=== PATIENT | male | born 1955 | race Caucasian/White ===

== ENCOUNTER 2020-04-20 12:23 | Inpatient (IN) | payer MEDICARE ==
[~2020-04-20] VITALS: Ht 177.8 cm; Wt 89.8 kg
[2020-04-20 14:00] VITALS: BP 149/87
[2020-04-20] MEDS ORDERED: ONDANSETRON 4 MG TAB PO PRN (14:15)
[2020-04-20] MEDS ORDERED: ACETAMINOPHEN 325 MG TAB PO PRN (14:15)
[2020-04-20] MEDS ORDERED: AMLO1TAB24 PO (14:19)
[2020-04-20] MEDS ORDERED: PLAV1TAB2 PO (14:19)
[2020-04-20] MEDS ORDERED: LOVE1INJ SC (14:19)
[2020-04-20] MEDS ORDERED: ASPI81TA26 PO (14:19)
[2020-04-20] MEDS ORDERED: FLUO20CA22 PO (14:19)
[2020-04-20] MEDS ORDERED: CARV3.12 PO (14:19)
[2020-04-20] MEDS ORDERED: DOCU100C16 PO (14:19)
[2020-04-20] MEDS ORDERED: HYDR25TAB PO (14:19)
[2020-04-20] MEDS ORDERED: LOSA100T50 PO (14:19)
[2020-04-20] MEDS ORDERED: MILKSUS3 PO (14:19)
[2020-04-20] MEDS ORDERED: ATOR80TA59 PO (14:19)
[2020-04-20] MEDS ORDERED: LISI-542 PO (14:53)
[2020-04-20] MEDS: FLUoxetine 20 MG CAP PO SCH (17:26)
--- NOTE | 2020-04-20 17:30 | HPEPDOC ---
Induction Coordination Power Engineer Note DATE OF ADMISSION: April 20, 2020 DATE OF SERVICE: April 20, 2020 TIME OF ADMISSION: Please refer to physician's admission order. SOURCE OF ADMISSION INFORMATION: Medical Records and Patient ADMITTING DIAGNOSES: Left CVA Multi infarct bilaterally. Right hemiparesis. Dysarthria Aphasia Hypertension. Atherosclerosis Carotid stenosis Possible chronic Right maxillary Sinusitis Ataxia CHIEF COMPLAINT: Right hemiparesis. Communication deficits Possible Swallowing issues HISTORY OF PRESENT ILLNESS: This is a 64-year-old right handed male with no medical evaluation for over a decade who presented to [facility] with 12+ hours of worsening right-sided weakness, dysarthria, ataxia on April 15 with [address] transfer to [facility], not considered a candidate for TPA. A pparently the evening of April 14, he had mild right sided weakness, he went to sleep and awoke the morning of the with slurred speech significant right hemiplegia and incoordination. Workup remarkable for hypertension 170/94 treated initially with nicardipine drip, then converted to PO meds. Workup noted widespread atheromatous disease throughout cerebral vasculature with evidence bilateral multiple lacunar infarcts and opacification right maxillary sinus, possible chronic sinusitis/fungal sinusitis that may need further future assessment. He presents for comprehensive rehabilitation with the encouragement and support of his who is also his primary caregiver. REVIEW OF SYSTEMS: The following is a completed review of systems and has been reviewed. Review of systems otherwise unremarkable. PAIN: Patient self reports no pain. EYES: No recent vision changes. EARS, NOSE, & THROAT: No throat pain, or dysphagia, or rhinorrhea. CARDIOVASCULAR: Denies chest pain or palpitations. PULMONARY: Denies shortness of breath. GASTROINTESTINAL: Denies constipation/diarrhea. GENITOURINARY:negative. MUSCULOSKELETAL: Negative . NEUROLOGICAL:. Right sided weakness HEMATOLOGICAL: negative SKIN: Negative for bleeding bruising or other challenges PSYCHIATRIC: Negative for behavioral problems or agitation All other review of systems found to be negative. PAST MEDICAL HISTORY: Unknown, no recent care PAST SURGICAL HISTORY: Knee surgery HS ALLERGIES: Please see below. MEDICATIONS: Please see below. FAMILY HISTORY: parents 90s no chronic illness SOCIAL HISTORY: . Non Smoker, no EtOH, lives in a 4 step entrance home. DIET: Pureed PHYSICAL EXAMINATION: VITAL SIGNS: Please see below. GENERAL: Pleasant and cooperative well developed muscular gentleman with flowing hernandez, difficult to assess for facial droop, however decreased eye closure on right. No acute distress. Alert and oriented times three speaks with slurred but comprehensible and appropriate speech. HEENT: Extraocular movements decreased on right lateral gaze. Clear conjunctiva, no adenopathy or thyromegaly. Full cervical range of motion without tenderness or spasm. CARDIOVASCULAR: Regular rate and rhythm. No murmurs, rubs, or gallops. LUNGS: Clear to auscultation bilaterally. No wheezes. No rhonchi. ABDOMEN: Soft, nontender, nondistended. Positive bowel sounds. Normal active bowel sounds, no organomegaly. NEUROLOGICAL: Cranial nerves II through XII noted for decreased hearing bila terally, decreased EOM on right, decreased lid closure, tongue deviated slightly to right. Sensation grossly intact all 4 extremities.. 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 Right LE increased tone on passive range, difficult to assess functional movement, left lower extremity 5/5 knee extension, foot dorsiflexion, plantar flexion. SKIN: intact LABORATORY DATA: Please see below. IMAGING:Imaging documentation personally reviewed by record. CT Angio 04.16.2020 Lacunar infarcts, left yarbrough radiate, posterior limb left internal capsule as well as lacunar infarcts, right yarbrough radiate Admit stenosis, left P1 moderate stenosis right P2 segments, luminal irregularities bilateral MCA and METALSMITH secondary to atheromatous disease. Incidental note also minimum near complete opacification of right maxillary sinus, possibly chronic sinusitis for fungal sinusitis MRI Brain w/o contrast 04.16.2020 Acute infarct L yarbrough radiate and posterior limb left internal capsule Chronic small vessel ischemic disease FUNCTIONAL STATUS: Premorbid: Independent with all activities of daily life as well as mobility. On Admission: -Maximal assistance for lower body dressing, shower transfers, stairs. - Maximal to moderate assistance for bathing, upper body dressing, bed chair and wheelchair transfers, toilet transfers. - Moderate assistance for memory, communication and problem solving. -Modified independence for social interaction, expression, comprehension, bowel and bladder. GOALS: Regain maximal functional capabilities to return home to and family. ASSESSMENT This is a 64-year-old male with no medical evaluation for over a decade who presented to [facility] with worsening right-sided weakness, dysarthria, ataxia on April 15 with subsequent transfer to [facility], not considered a candidate for TPA. Apparently the evening of April 14 he had mild right sided weakness, he went to sleep and awoke the morning of the with slurred speech significant right hemiplegia and incoordination. Workup remarkable for hypertension 170/94 treated initially with nicardipine drip, then converted to PO meds. Workup noted widespread atheromatous disease throughout cerebral vasculature with evidence bilateral multiple lacunar infarcts and opacification right maxillary sinus, possible chronic sinusitis/fungal sinusitis that may need further future assessment. He presents for comprehensive rehabilitation with the encouragement and support of his who is also his primary caregiver. PLAN: 1. Rehab- PT/OT advance gait and ADls, strengthen/stretch/maintain ROM all 4 limbs. 2. 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 Prevent complications of flaccid RUE with arm trough support, sling, splinting as indicated. 3. CVS-No cardiac symptoms, maintain stable BP, probable downward adjustment in BP polypharmacy of meds as he increases activity levels. --HLD- c/u Atorvastatin 5. - Initiate usual bladder training protocols POST ADMISSION PHYSICIAN EVALUATION: Medical and functional status: Description of medical status, medical assessment: As above. Rehabilitation diagnosis and current and prior co- morbid medical conditions as above. Risk of complications and plans to mitigate them as above. Description of functional status current status is as above. Prior status as above. Status compared to preadmission: There are no clinically significant differences between the patient's current status and the information described on the preadmission screening document. Treatment plan anticipated: Treatment plan is as described above. Required disciplines including physical therapy, occupational therapy, others as noted above]. Intensity of services: 3 hours a day, 6-7 days a week. Special considerations: There are no specific special or safety considerations that would likely preclude immediate implementation of an intensive rehabilitati on program or subsequently influence the plan of care. ATTESTATION: Considering all the information above, it is my best judgment that this patient requires intensive rehabilitation therapy as described above and an inpatient hospital environment due to the complexity of nursing, medical, and rehabilitation needs required by the patient. Furthermore, this patient can reasonably be expected to participate in an benefit from an inpatient rehabilitation stay with an interdisciplinary team approach to the delivery of rehabilitation care under the direction and supervision of rehabilitation physician. PROGNOSIS: Excellent. ESTIMATED LENGTH OF STAY:7-10 days. PROJECTED DISCHARGE DESTINATION: Home with family support and any durable medical equipment required to increase functional safety and mobility. CM at [facility] coordinated anticipated FU with new PMD Dr. Kristine Beth in [place] TIME SPENT COUNSELING AND COORDINATING INITIAL CARE: Greater than 70 minutes. This document is generated using speech recognition software which may result in grammatical, typographical and individual word errors. Vital Signs Vital Sign - Last 24 Hours 04/20/20 14:00 Temp 98.3 Pulse 80 Resp 18 B/P (MAP) 149/87 (107) Pulse Ox 97 O2 Delivery Room Air Laboratory Data Labs 24H Laboratory Tests 2 04/20/20 16:30: Bedside Glucose (Misc Panel) 172H FSBS Laboratory Tests Test 04/20/20 16:30 Range/Units Bedside Glucose (Misc Panel) 172 80-115 MG/DL Home Medications Scheduled Amlodipine Besylate (Amlodipine Besylate) 5 Mg Tablet, 5 MG PO DAILY, (Reported) Aspirin (Aspirin EC) 81 Mg Tablet.dr, 81 MG PO DAILY, (Reported) Atorvastatin Calcium (Atorvastatin Calcium) 80 Mg Tablet, 80 MG PO QHS, (Reported) Carvedilol (Carvedilol) 3.125 Mg Tablet, 3.125 MG PO BID, (Reported) Clopidogrel Bisulfate (Plavix) 75 Mg Tablet, 75 MG PO DAILY, (Reported) Enoxaparin Sodium (Lovenox) 40 Mg/0.4 Ml Syringe, 40 MG SC QHS, (Reported) GIVEN AT [facility] BUT NOT ON HOME MED LIST Fluoxetine Hcl (Fluoxetine HCl) 20 Mg Capsule, 20 MG PO DAILY, (Reported) Hydrochlorothiazide (Hydrochlorothiazide) 25 Mg Tablet, 25 MG PO DAILY, (Reported) Lisinopril (Lisinopril) 5 Mg Tablet, 5 MG PO DAILY, (Reported) PT TO START MEDICATION ON 04/21 Losartan Potassium (Losartan Potassium) 100 Mg Tablet, 100 MG PO BID, (Reported) Magnesium Hydroxide (Milk of Magnesia) 400 Mg/5 Ml Oral.susp, 45 ML PO QHS, (Reported) Scheduled PRN Docusate Sodium (Docusate Sodium) 100 Mg Capsule, 100 MG PO BID PRN for CONSTIPATION, (Reported) Allergies Coded Allergies: No Known Allergies (Verified Allergy, Unknown, 04/20/20) A-FIB/CHADSVASC A-FIB History Current/History of A-Fib/PAF?: No Age/Risk Factor Scoring CHADSVASC: CHADSVASC Response (Comments) Value Age Risk Factor Age 65-74 years old 1 Gender Risk Factor Male 0 Hx of CHF No 0 Hx of HTN Yes 1 Hx of Stroke/TIA/or VTE Yes 2 Hx of Diabetes No 0 Hx of Vascular Disease No 0 Total 4 Treatment Treatment ordered: Other Other anticoagulant ordered: Clopidegrel SILVESTRE COELHO MD Apr 20, 2020 17:30
[2020-04-20 20:00] VITALS: BP 138/77
[2020-04-20] MEDS ORDERED: GLUCAGON INJ 1MG VIAL SC PRN (20:45)
[2020-04-20] MEDS ORDERED: GLUCOSE 4GM CHEW TABLET PO PRN (20:45)
[2020-04-20] MEDS ORDERED: DEXTROSE 50% 50 ML SYRINGE IV PRN (20:45)
[2020-04-20] MEDS: HumaLOG INSULIN (NovoLOG) PER UNIT SC SCH (21:00)
[2020-04-20] MEDS: ATORVASTATIN 20 MG TAB PO SCH (21:06)
[2020-04-20] MEDS: CARVedilol 3.125 MG TAB PO SCH (21:07)
[2020-04-20] MEDS: LOSARTAN 50MG TABLET PO SCH (21:07)
[2020-04-21 04:25] LABS: APPEARANCE, URINE HAZY (CLEAR); BACTERIA, URINE AUTO 3+ (NEGATIVE); BILIRUBIN, URINE AUTO NEGATIVE (NEGATIVE); BLOOD, URINE BLOOD NEGATIVE (NEGATIVE); COLOR, URINE YELLOW (YELLOW); GLUCOSE, URINE (UA) AUTO NEGATIVE (NEGATIVE); KETONE, URINE AUTO NEGATIVE (NEGATIVE); LEUKOCYTE ESTERASE, URINE AUTO 1+ (NEGATIVE); MUCUS, URINE SMALL (NEGATIVE); NITRITE, URINE AUTO POSITIVE (NEGATIVE); PROTEIN, URINE AUTO 1+ mg/dL (NEGATIVE); RBC, URINE AUTO 1 /HPF (0-3); SPECIFIC GRAVITY URINE AUTO 1.015 (1.002-1.035); SQUAMOUS EPITHELIAL CELL UR AU 2 /HPF (0-6); UROBILINOGEN, URINE AUTO 0.2 mg/dL (0.0-2.0); WBC, URINE AUTO 37 /HPF (0-3)
[2020-04-21 05:58] VITALS: BP 150/82
[2020-04-21] MEDS: ASPIRIN 81 MG ENTERIC TAB PO SCH (08:19)
[2020-04-21] MEDS: LOSARTAN 50MG TABLET PO SCH ×2 (08:19→20:22)
[2020-04-21] MEDS: hydroCHLOROthiazide 25 MG TAB PO SCH (08:20)
[2020-04-21] MEDS: amLODIPine 5 MG TAB PO SCH (08:20)
[2020-04-21] MEDS: CLOPIDOGREL 75 MG TAB PO SCH (08:20)
[2020-04-21] MEDS: lisinopriL 5 MG TAB PO SCH (08:21)
[2020-04-21] MEDS: DOCUSATE SODIUM 100MG CAPSULE PO SCH (08:22)
[2020-04-21] MEDS: CARVedilol 3.125 MG TAB PO SCH ×2 (08:22→20:22)
[2020-04-21] MEDS: HumaLOG INSULIN (NovoLOG) PER UNIT SC SCH ×4 (08:22→20:22)
[2020-04-21 08:36] LABS: BASO # 0.1 10^3/uL (0.0-0.2); BASO % 0.6 % (0.0-1.0); EOS # 0.2 10^3/uL (0.0-0.5); EOS % 1.9 % (0.0-3.0); HEMATOCRIT 46.4 % (42.0-52.0); HEMOGLOBIN 15.6 g/dl (13.5-17.5); LYMPH # 2.5 10^3/uL (1.5-5.0); LYMPH % 21.2 % (24.0-44.0); MEAN CORPUSCULAR HEMOGLOBIN 29.7 pg (27.0-33.0); MEAN CORPUSCULAR HGB CONC 33.6 g/dl (32.0-36.5); MEAN CORPUSCULAR VOLUME 88.4 fl (80.0-96.0); MONO # 1.3 10^3/uL (0.0-0.8); MONO % 11.1 % (0.0-5.0); NEUTROPHILS # 7.7 10^3/uL (1.5-8.5); NEUTROPHILS % 64.8 % (36.0-66.0); PLATELET COUNT, AUTOMATED 353 10^3/uL (150-450); RED BLOOD COUNT 5.25 10^6/uL (4.30-6.10); WHITE BLOOD COUNT 11.8 10^3/uL (4.0-10.0)
[2020-04-21 09:01] LABS: ALBUMIN 3.5 GM/DL (3.2-5.2); BILIRUBIN,TOTAL 0.9 MG/DL (0.2-1.0); CALCIUM LEVEL 8.9 MG/DL (8.8-10.2); CREATININE FOR GFR 1.77 MG/DL (0.70-1.30); GLOMERULAR FILTRATION RATE 41.3 (>49); POTASSIUM SERUM 4.2 MEQ/L (3.5-5.1)
[2020-04-21 14:00] VITALS: BP 120/63
[2020-04-21] MEDS: FLUoxetine 20 MG CAP PO SCH (17:09)
[2020-04-21 20:00] VITALS: BP 165/79
[2020-04-21] MEDS: ATORVASTATIN 20 MG TAB PO SCH (20:21)
[2020-04-22 06:00] VITALS: BP 139/89
[2020-04-22] MEDS: LOSARTAN 50MG TABLET PO SCH ×2 (07:42→20:49)
[2020-04-22] MEDS: CARVedilol 3.125 MG TAB PO SCH ×2 (07:42→20:48)
[2020-04-22] MEDS: hydroCHLOROthiazide 25 MG TAB PO SCH (07:42)
[2020-04-22] MEDS: ASPIRIN 81 MG ENTERIC TAB PO SCH (07:42)
[2020-04-22] MEDS: CLOPIDOGREL 75 MG TAB PO SCH (07:43)
[2020-04-22] MEDS: amLODIPine 5 MG TAB PO SCH (07:43)
[2020-04-22] MEDS: lisinopriL 5 MG TAB PO SCH (07:43)
[2020-04-22] MEDS: HumaLOG INSULIN (NovoLOG) PER UNIT SC SCH ×4 (07:44→20:47)
[2020-04-22] MEDS: DOCUSATE SODIUM 100MG CAPSULE PO SCH (07:44)
[2020-04-22 14:00] VITALS: BP 162/77
[2020-04-22] MEDS: FLUoxetine 20 MG CAP PO SCH (17:26)
[2020-04-22 20:00] VITALS: BP 167/81
[2020-04-22] MEDS: ATORVASTATIN 20 MG TAB PO SCH (20:48)
[2020-04-23 06:00] VITALS: BP 165/83
[2020-04-23] MEDS ORDERED: LevoFLOXacin 750 MG TABLET PO SCH (06:00)
[2020-04-23] MEDS: ASPIRIN 81 MG ENTERIC TAB PO SCH (08:12)
[2020-04-23] MEDS: HumaLOG INSULIN (NovoLOG) PER UNIT SC SCH ×4 (08:12→20:42)
[2020-04-23] MEDS: lisinopriL 5 MG TAB PO SCH (08:13)
[2020-04-23] MEDS: CLOPIDOGREL 75 MG TAB PO SCH (08:13)
[2020-04-23] MEDS: DOCUSATE SODIUM 100MG CAPSULE PO SCH (08:13)
[2020-04-23] MEDS: LOSARTAN 50MG TABLET PO SCH ×2 (08:14→20:44)
[2020-04-23] MEDS: hydroCHLOROthiazide 25 MG TAB PO SCH (08:14)
[2020-04-23] MEDS: amLODIPine 5 MG TAB PO SCH (08:14)
[2020-04-23 08:15] VITALS: BP 145/73
[2020-04-23] MEDS: CARVedilol 3.125 MG TAB PO SCH ×2 (08:15→20:43)
--- NOTE | 2020-04-23 11:43 | IPNPDOC ---
PM&R Progress Note DATE OF SERVICE: Apr 23, 2020 Functional Manager Progress Note Subjective: PAtient reports he feels very weak on his right side, denies pain, fevers or chills, and is agreeable to staying beyond tomorrow to get more therapy. REVIEW OF SYSTEMS: The following is a completed review of systems and has been reviewed. Review of systems otherwise unremarkable. PAIN: Patient self reports no pain. EYES: No recent vision changes. EARS, NOSE, & THROAT: No throat pain,+ dysphagia CARDIOVASCULAR: Denies chest pain or palpitations. PULMONARY: Denies shortness of breath. GASTROINTESTINAL: Denies constipation/diarrhea. GENITOURINARY:negative. MUSCULOSKELETAL: Negative . NEUROLOGICAL:. Right sided weakness HEMATOLOGICAL: negative SKIN: Negative for bleeding bruising or other challenges PSYCHIATRIC: Negative for behavioral problems or agitation All other review of systems found to be negative. PHYSICAL EXAMINATION: VITAL SIGNS: Please see below. GENERAL: Pleasant and cooperative well developed muscular gentleman with flowing hernandez, difficult to assess for facial droop, however decreased eye closure on right. No acute distress. Alert and oriented times three speaks with slurred but comprehensible and appropriate speech. HEENT: Extraocular movements decreased on right lateral gaze. Clear conjunctiva, no adenopathy or thyromegaly. Full cervical range of motion without tenderness or spasm. CARDIOVASCULAR: Regular rate and rhythm. No murmurs, rubs, or gallops. LUNGS: Clear to auscultation bilaterally. No wheezes. No rhonchi. ABDOMEN: Soft, nontender, nondistended. Positive bowel sounds. Normal active bowel sounds, no organomegaly. NEUROLOGICAL: Cranial nerves II through XII noted for decreased hearing bilaterally, decreased EOM on right, decreased lid closure, tongue deviated slightly to right. Sensation grossly intact all 4 extremities.. 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 Right LE increased tone on passive range, difficult to assess functional movement, left lower extremity 5/5 knee extension, foot dorsiflexion, plantar flexion. SKIN: intact ASSESSMENT This is a 64-year-old male with no medical evaluation for over a decade who presented to [facility] with worsening right-sided weakness, dysarthria, ataxia on April 15 with subsequent transfer to [facility], not considered a candidate for TPA. Apparently the evening of April 14 he had mild right sided weakness, he went to sleep and awoke the morning of the with slurred speech significant right hemiplegia and incoordination. Workup remarkable for hypertension 170/94 treated initially with nicardipine drip, then converted to PO meds. Workup noted widespread atheromatous disease throughout cerebral vasculature with evidence bilateral multiple lacunar infarcts and opacification right maxillary sinus, possible chronic sinusitis/fungal sinusitis that may need further future assessment. He presents for comprehensive rehabilitation with the encouragement and support of his who is also his primary caregiver. PLAN: 1. Rehab- PT/OT advance gait and ADls, strengthen/stretch/maintain ROM all 4 limbs. 2. 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 CV- Hx of HTN, c/u BP meds, will track kidney function while on HEATHER and ARB, unclear if he has chronic CKD S-No cardiac symptoms, maintain stable BP, probable downward adjustment in BP polypharmacy of meds as he increases activity levels. --HLD- c/u Atorvastatin 5. - Initiate usual bladder training protocols, Ucx + E. coli will start renally dosed LEvaquin for complicated UTI 6. GI ppx- lanzaprazole 7. DVT ppx- heparin and teds 8. ID- patient started on levaquin for UTI today -patient not complaining of sinus pain today, but will monitor as possible nidus for infection 9. Dispo- TBD Allergies Coded Allergies: No Known Allergies (Verified Allergy, Unknown, 04/20/20) Vital Signs Vital Signs Date Time Temp Pulse Resp B/P (MAP) Pulse Ox O2 Delivery O2 Flow Rate FiO2 04/23/20 08:15 64 145/73 (97) 04/23/20 06:00 97.8 20 98 Room Air Laboratory Data Labs 24H Laboratory Tests 2 04/22/20 16:13: Bedside Glucose (Misc Panel) 254H 04/22/20 20:11: Bedside Glucose (Misc Panel) 125H 04/23/20 06:20: Bedside Glucose (Misc Panel) 128H Microbiology Microbiology 04/21/20 Urine Culture - Final, Complete Escherichia Coli Current Medications Current Medications Current Medications Medications (Trade) Dose Ordered Sig/Anuja Route PRN Reason Start Time Stop Time Status Last Admin Dose Admin Acetaminophen (Tylenol Tab) 325 mg Q6HP PRN PO HEADACHE 04/20/20 14:15 Amlodipine Besylate (Norvasc) 5 mg DAILY PO 04/21/20 09:00 04/23/20 08:14 Aspirin (Ecotrin) 81 mg DAILY PO 04/21/20 09:00 04/23/20 08:12 Atorvastatin Calcium (Lipitor) 40 mg QHS PO 04/20/20 21:00 04/22/20 20:48 Carvedilol (COReg) 3.125 mg BID PO 04/20/20 21:00 04/23/20 08:15 Clopidogrel Bisulfate (PLAVix) 75 mg DAILY PO 04/21/20 09:00 04/23/20 08:13 Dextrose (Dextrose 50%) 25 ml ASDIRECTED PRN IV SEE LABEL COMMENTS 04/20/20 20:45 Docusate Sodium (Colace) 100 mg DAILY PO 04/21/20 09:00 04/23/20 08:13 Fluoxetine HCl (PROzac) 20 mg DAILY@1800 PO 04/20/20 18:00 04/22/20 17:26 Glucagon (Glucagon) 1 mg ASDIRECTED PRN SC SEE LABEL COMMENTS 04/20/20 20:45 Glucose (Glucose) 16 GM ASDIRECTED PRN PO SEE LABEL COMMENTS 04/20/20 20:45 Home Med (Med Rec Complete!) ASDIRECTED XX 04/20/20 14:45 04/20/20 14:43 DC Hydrochlorothiazide (Hydrodiuril) 25 mg DAILY PO 04/21/20 09:00 04/23/20 08:14 Insulin Human Lispro (HumaLOG INSULIN) See Protocol Table AC SC 04/21/20 07:30 04/23/20 08:12 Insulin Human Lispro (HumaLOG INSULIN) See Protocol Table QHS SC 04/20/20 21:00 Lactobacillus Acidophilus (Bacid) 1 ea WM PO 04/23/20 12:30 Levofloxacin (Levaquin) 750 mg Q2D@0600 PO 04/23/20 06:00 04/29/20 06:01 04/23/20 10:24 Lisinopril (Prinivil) 5 mg DAILY PO 04/21/20 09:00 04/23/20 08:13 Losartan Potassium (Cozaar) 100 mg BID PO 04/20/20 21:00 04/23/20 08:14 Ondansetron HCl (Zofran) 4 mg Q6HP PRN PO NAUSEA OR VOMITING 04/20/20 14:15 ONUR COVARRUBIAS MD Apr 23, 2020 11:43
[2020-04-23] MEDS: LACTOBACILLUS ACIDOPHILUS CAP (BACID) PO SCH ×2 (12:13→18:19)
[2020-04-23] MEDS: HEPARIN SOD (PORCINE) 5000UNITS/ML 1ML VIAL/SYRINGE SQ SCH ×2 (12:14→20:42)
[2020-04-23 12:35] LABS: BASO # 0.1 10^3/uL (0.0-0.2); BASO % 0.5 % (0.0-1.0); EOS # 0.2 10^3/uL (0.0-0.5); EOS % 1.8 % (0.0-3.0); HEMATOCRIT 44.9 % (42.0-52.0); LYMPH # 2.5 10^3/uL (1.5-5.0); LYMPH % 20.7 % (24.0-44.0); MEAN CORPUSCULAR HEMOGLOBIN 29.2 pg (27.0-33.0); MEAN CORPUSCULAR HGB CONC 33.4 g/dl (32.0-36.5); MEAN CORPUSCULAR VOLUME 87.5 fl (80.0-96.0); MONO # 1.1 10^3/uL (0.0-0.8); MONO % 9.2 % (0.0-5.0); NEUTROPHILS % 67.4 % (36.0-66.0); PLATELET COUNT, AUTOMATED 422 10^3/uL (150-450); RED BLOOD COUNT 5.13 10^6/uL (4.30-6.10); WHITE BLOOD COUNT 11.9 10^3/uL (4.0-10.0)
[2020-04-23 13:02] LABS: CALCIUM LEVEL 9.2 MG/DL (8.8-10.2); CREATININE FOR GFR 1.45 MG/DL (0.70-1.30); POTASSIUM SERUM 4.6 MEQ/L (3.5-5.1)
[2020-04-23 14:00] VITALS: BP 151/72
--- NOTE | 2020-04-23 15:23 | REP ---
INDICATION: immobility COMPARISON: None. TECHNIQUE: Real time compression and duplex Doppler interrogation of the bilateral lower extremity deep venous system is performed. FINDINGS: Bilaterally, the common femoral, superficial femoral and popliteal veins are fully compressible with transducer pressure and demonstrate normal spontaneous and phasic flow, without evidence of deep venous thrombosis. IMPRESSION: No evidence of deep venous thrombosis of the bilateral lower extremity femoral popliteal venous system. <Electronically signed by Daniel Merida > 04/23/20 [id number]
[2020-04-23] MEDS: LANSOPRAZOLE SUSPENSION 30 MG/10 ML ORAL SYRINGE (FIRST-LANSOPRAZOLE) PO SCH (18:19)
[2020-04-23] MEDS: FLUoxetine 20 MG CAP PO SCH (18:20)
[2020-04-23 20:00] VITALS: BP 165/80
[2020-04-23] MEDS: ATORVASTATIN 20 MG TAB PO SCH (20:43)
[2020-04-24 06:00] VITALS: BP 145/71
[2020-04-24 08:09] LABS: BASO # 0.1 10^3/uL (0.0-0.2); BASO % 0.5 % (0.0-1.0); EOS # 0.2 10^3/uL (0.0-0.5); EOS % 1.4 % (0.0-3.0); HEMOGLOBIN 15.4 g/dl (13.5-17.5); LYMPH # 2.2 10^3/uL (1.5-5.0); LYMPH % 20.2 % (24.0-44.0); MEAN CORPUSCULAR HEMOGLOBIN 30.3 pg (27.0-33.0); MEAN CORPUSCULAR HGB CONC 34.2 g/dl (32.0-36.5); MEAN CORPUSCULAR VOLUME 88.6 fl (80.0-96.0); MONO # 0.9 10^3/uL (0.0-0.8); MONO % 8.2 % (0.0-5.0); NEUTROPHILS # 7.6 10^3/uL (1.5-8.5); NEUTROPHILS % 69.4 % (36.0-66.0); PLATELET COUNT, AUTOMATED 375 10^3/uL (150-450); RED BLOOD COUNT 5.08 10^6/uL (4.30-6.10); WHITE BLOOD COUNT 10.9 10^3/uL (4.0-10.0)
[2020-04-24] MEDS: HumaLOG INSULIN (NovoLOG) PER UNIT SC SCH ×2 (08:15→12:00)
[2020-04-24] MEDS: hydroCHLOROthiazide 25 MG TAB PO SCH (08:15)
[2020-04-24] MEDS: LACTOBACILLUS ACIDOPHILUS CAP (BACID) PO SCH ×2 (08:15→12:30)
[2020-04-24] MEDS: LOSARTAN 50MG TABLET PO SCH (08:16)
[2020-04-24] MEDS: lisinopriL 5 MG TAB PO SCH (08:17)
[2020-04-24] MEDS: HEPARIN SOD (PORCINE) 5000UNITS/ML 1ML VIAL/SYRINGE SQ SCH (08:17)
[2020-04-24] MEDS: DOCUSATE SODIUM 100MG CAPSULE PO SCH (08:17)
[2020-04-24] MEDS: ASPIRIN 81 MG ENTERIC TAB PO SCH (08:17)
[2020-04-24] MEDS: LANSOPRAZOLE SUSPENSION 30 MG/10 ML ORAL SYRINGE (FIRST-LANSOPRAZOLE) PO SCH (08:18)
[2020-04-24] MEDS: CARVedilol 3.125 MG TAB PO SCH (08:18)
[2020-04-24] MEDS: CLOPIDOGREL 75 MG TAB PO SCH (08:18)
[2020-04-24] MEDS: amLODIPine 5 MG TAB PO SCH (08:18)
[2020-04-24 08:32] LABS: CALCIUM LEVEL 9.3 MG/DL (8.8-10.2); CREATININE FOR GFR 1.48 MG/DL (0.70-1.30); GLOMERULAR FILTRATION RATE 50.8 (>49); POTASSIUM SERUM 4.5 MEQ/L (3.5-5.1)
[2020-04-24] MEDS ORDERED: NS 1,000 ML IV SCH (10:00)
[2020-04-24] MEDS ORDERED: CARV3.12 PO (10:56)
[2020-04-24] MEDS ORDERED: FLUO20CA22 PO (10:56)
[2020-04-24] MEDS ORDERED: INSUHUMDS SC (10:56)
[2020-04-24] MEDS ORDERED: LANC1COM MC (10:56)
[2020-04-24] MEDS ORDERED: LISI-542 PO (10:56)
[2020-04-24] MEDS ORDERED: HYDR25TA PO (10:56)
[2020-04-24] MEDS ORDERED: CLOP75TA2 PO (10:56)
[2020-04-24] MEDS ORDERED: ATOR80TA59 PO (10:56)
[2020-04-24] MEDS ORDERED: FREEMIS42 TOP (10:56)
[2020-04-24] MEDS ORDERED: RISATAB3 PO (10:56)
[2020-04-24] MEDS ORDERED: CARE1KIT XX (10:56)
[2020-04-24] MEDS ORDERED: AMLO1TAB24 PO (10:56)
[2020-04-24] MEDS ORDERED: LEVO750T13 PO (10:56)
[2020-04-24] MEDS ORDERED: HYDR25TAB PO (10:56)
[2020-04-24] MEDS ORDERED: ASPI81TAEC PO (10:56)
--- NOTE | 2020-04-24 11:41 | IPNPDOC ---
PM&R Progress Note DATE OF SERVICE: Apr 24, 2020 Community Liaison Officer Progress Note Subjective: PAtient would like to leave AMA today. He is agreeable to receiving some IV fluids in the meantime. Please see note below. REVIEW OF SYSTEMS: The following is a completed review of systems and has been reviewed. Review of systems otherwise unremarkable. PAIN: Patient self reports no pain. EYES: No recent vision changes. EARS, NOSE, & THROAT: No throat pain,+ dysphagia CARDIOVASCULAR: Denies chest pain or palpitations. PULMONARY: Denies shortness of breath. GASTROINTESTINAL: Denies constipation/diarrhea. GENITOURINARY:negative. MUSCULOSKELETAL: Negative . NEUROLOGICAL:. Right sided weakness HEMATOLOGICAL: negative SKIN: Negative for bleeding bruising or other challenges PSYCHIATRIC: Negative for behavioral problems or agitation All other review of systems found to be negative. PHYSICAL EXAMINATION: VITAL SIGNS: Please see below. GENERAL: Pleasant and cooperative well developed muscular gentleman with flowing hernandez, difficult to assess for facial droop, however decreased eye closure on right. No acute distress. Alert and oriented times three speaks with slurred but comprehensible and appropriate speech. HEENT: Extraocular movements decreased on right lateral gaze. Clear conjunctiva, no adenopathy or thyromegaly. Full cervical range of motion without tenderness or spasm. CARDIOVASCULAR: Regular rate and rhythm. No murmurs, rubs, or gallops. LUNGS: Clear to auscultation bilaterally. No wheezes. No rhonchi. ABDOMEN: Soft, nontender, nondistended. Positive bowel sounds. Normal active bowel sounds, no organomegaly. NEUROLOGICAL: Cranial nerves II through XII noted for decreased hearing bilaterally, decreased EOM on right, decreased lid closure, tongue deviated slightly to right. Sensation grossly intact all 4 extremities.. 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 Right LE increased tone on passive range, difficult to assess functional movement, left lower extremity 5/5 knee extension, foot dorsiflexion, plantar flexion. SKIN: intact ASSESSMENT This is a 64-year-old male with no medical evaluation for over a decade who pr esented to [facility] with worsening right-sided weakness, dysarthria, ataxia on April 15 with subsequent transfer to [facility], not considered a candidate for TPA. Apparently the evening of April 14 he had mild right sided weakness, he went to sleep and awoke the morning of the with slurred speech significant right hemiplegia and incoordination. Workup remarkable for hypertension 170/94 treated initially with nicardipine drip, then converted to PO meds. Workup noted widespread atheromatous disease throughout cerebral vasculature with evidence bilateral multiple lacunar infarcts and opacification right maxillary sinus, possible chronic sinusitis/fungal sinusitis that may need further future assessment. He presents for comprehensive rehabilitation with the encouragement and support of his who is also his primary caregiver. PLAN: 1. Rehab- PT/OT advance gait and ADls, strengthen/stretch/maintain ROM all 4 limbs. 2. 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 CV- Hx of HTN, will stop Cozaar today as patient with PADMINI and a Baggagemaster of 1.7 up from , increase amlodipine to 5mg BID, and add hydralazine with holding parameters, c/u other BP meds for now and adjust as needed-patient to receive gentle IVF today --HLD- c/u Atorvastatin 5. - Initiate usual bladder training protocols, Ucx + E. coli c/u renally dosed LEvaquin for complicated UTI 6. GI ppx- lanzaprazole 7. DVT ppx- heparin and teds-doppler negative 04-23-20 for DVT 8. ID- patient started on levaquin for UTI 04-23-20 -patient not complaining of sinus pain today, but will monitor as possible nidus for infection 9. Dispo- patient leaving AMA today with and daughter- script for wheelchair provided, appointment moved up with PMD for tomorrow given medical complexity and high risk discharge, family training provided today DME patient will need a wheelchair to complete his MRADLs in a timely and safe manner. He is unable to use a walker or cane. His home is accessible, he and his family are willing to use it. Patient on 04-23-20 agreed to stay for more therapy and medical management when I spoke with him. I spoke to his on 04-23-20 about the benefits of rehab and she said she did not want him to stay beyond 04-24-20 stating she feels she can take better care of him and that she is concerned about him getting Covid. Today, 04-24-20 I spoke with his about my concerns with his kidney function and the need to stop his Losartan, adjust his other BP meds, and give gentle hydration. The stated she would give him water and check his blood pressure at home. The risks of kidney damage, uncontrolled blood pressure, high risk of new stroke, and were explained to patient and also his on 04-24-20, but patient states he is aware and still wants to go home. Allergies Coded Allergies: No Known Allergies (Verified Allergy, Unknown, 04/20/20) Vital Signs Vital Signs Date Time Temp Pulse Resp B/P (MAP) Pulse Ox O2 Delivery O2 Flow Rate FiO2 04/24/20 08:16 158/70 04/24/20 06:00 98.8 77 18 99 Room Air Laboratory Data CBC/BMP Laboratory Tests 04/23/20 12:22 04/24/20 07:31 Labs 24H Laboratory Tests 2 04/23/20 11:40: Bedside Glucose (Misc Panel) 195H 04/23/20 12:22: Immature Granulocyte % (Auto) 0.4, Neutrophils (%) (Auto) 67.4H, Lymphocytes (%) (Auto) 20.7L, Monocytes (%) (Auto) 9.2H, Eosinophils (%) (Auto) 1.8, Basophils (%) (Auto) 0.5, Neutrophils # (Auto) 8.0, Lymphocytes # (Auto) 2.5, Monocytes # (Auto) 1.1H, Eosinophils # (Auto) 0.2, Basophils # (Auto) 0.1, Nucleated Red Blood Cells % (auto) 0.0, Anion Gap 7L, Glomerular Filtration Rate 52.0, Calcium Level 9.2 04/23/20 16:22: Bedside Glucose (Misc Panel) 217H 04/23/20 20:30: Bedside Glucose (Misc Panel) 210H 04/24/20 06:47: Bedside Glucose (Misc Panel) 157H 04/24/20 07:31: Immature Granulocyte % (Auto) 0.3, Neutrophils (%) (Auto) 69.4H, Lymphocytes (%) (Auto) 20.2L, Monocytes (%) (Auto) 8.2H, Eosinophils (%) (Auto) 1.4, Basophils (%) (Auto) 0.5, Neutrophils # (Auto) 7.6, Lymphocytes # (Auto) 2.2, Monocytes # (Auto) 0.9H, Eosinophils # (Auto) 0.2, Basophils # (Auto) 0.1, Nucleated Red Blood Cells % (auto) 0.0, Anion Gap 7L, Glomerular Filtration Rate 50.8, Calcium Level 9.3 04/24/20 11:26: Bedside Glucose (Misc Panel) 184H Microbiology Microbiology 04/21/20 Urine Culture - Final, Complete Escherichia Coli Current Medications Current Medications Current Medications Medications (Trade) Dose Ordered Sig/Anuja Route PRN Reason Start Time Stop Time Status Last Admin Dose Admin Acetaminophen (Tylenol Tab) 325 mg Q6HP PRN PO HEADACHE 04/20/20 14:15 Amlodipine Besylate (Norvasc) 5 mg BID PO 04/24/20 21:00 Amlodipine Besylate (Norvasc) 5 mg DAILY PO 04/21/20 09:00 04/24/20 09:44 DC 04/24/20 08:18 Aspirin (Ecotrin) 81 mg DAILY PO 04/21/20 09:00 04/24/20 08:17 Atorvastatin Calcium (Lipitor) 40 mg QHS PO 04/20/20 21:00 04/23/20 20:43 Carvedilol (COReg) 3.125 mg BID PO 04/20/20 21:00 04/24/20 08:18 Clopidogrel Bisulfate (PLAVix) 75 mg DAILY PO 04/21/20 09:00 04/24/20 08:18 Dextrose (Dextrose 50%) 25 ml ASDIRECTED PRN IV SEE LABEL COMMENTS 04/20/20 20:45 Docusate Sodium (Colace) 100 mg DAILY PO 04/21/20 09:00 04/24/20 08:17 Fluoxetine HCl (PROzac) 20 mg DAILY@1800 PO 04/20/20 18:00 04/23/20 18:20 Glucagon (Glucagon) 1 mg ASDIRECTED PRN SC SEE LABEL COMMENTS 04/20/20 20:45 Glucose (Glucose) 16 GM ASDIRECTED PRN PO SEE LABEL COMMENTS 04/20/20 20:45 Heparin Sodium (Porcine) (Heparin) 5,000 units Q12H SQ 04/23/20 09:00 04/24/20 08:17 Home Med (Med Rec Complete!) ASDIRECTED XX 04/20/20 14:45 04/20/20 14:43 DC Hydralazine HCl (Apresoline) 25 mg Q6H PO 04/24/20 12:00 Hydrochlorothiazide (Hydrodiuril) 25 mg DAILY PO 04/21/20 09:00 04/24/20 08:15 Insulin Human Lispro (HumaLOG INSULIN) See Protocol Table AC SC 04/21/20 07:30 04/24/20 08:15 Insulin Human Lispro (HumaLOG INSULIN) See Protocol Table QHS SC 04/20/20 21:00 Lactobacillus Acidophilus (Bacid) 1 ea WM PO 04/23/20 12:30 04/24/20 08:15 Lansoprazole (First-Lansoprazole Oral Suspension) 30 mg DAILY PO 04/23/20 09:00 04/24/20 08:18 Levofloxacin (Levaquin) 750 mg Q2D@0600 PO 04/23/20 06:00 04/29/20 06:01 04/23/20 10:24 Lisinopril (Prinivil) 5 mg DAILY PO 04/21/20 09:00 04/24/20 08:17 Losartan Potassium (Cozaar) 100 mg BID PO 04/20/20 21:00 04/24/20 09:44 DC 04/24/20 08:16 Ondansetron HCl (Zofran) 4 mg Q6HP PRN PO NAUSEA OR VOMITING 04/20/20 14:15 Sodium Chloride 1,000 ml @ 75 mls/hr [id number] IV 04/24/20 10:00 04/24/20 23:19 04/24/20 10:12 ONUR COVARRUBIAS MD Apr 24, 2020 11:41
[2020-04-24] MEDS ORDERED: **hydrALAZINE HCL** 25 MG TAB PO SCH (12:00)
[2020-04-24 12:35] VITALS: BP 148/73
[2020-04-24] MEDS ORDERED: amLODIPine 5 MG TAB PO SCH (21:00)
== END 2020-04-24 12:50 | disposition left against medical advice (07) | DRG 57 ==
LOC: M PM&R 13:56
PROVIDERS: ADMIT Physical Medicine & Rehabilitation; ATTEND Physical Medicine & Rehabilitation
DX: I69.351 Hemiplegia and hemiparesis following cerebral infarction affecting right dominant side (principal); N17.9 Acute kidney failure, unspecified; I69.391 Dysphagia following cerebral infarction; R13.10 Dysphagia, unspecified; I69.392 Facial weakness following cerebral infarction; I69.320 Aphasia following cerebral infarction; I10 Essential (primary) hypertension; I67.2 Cerebral atherosclerosis; I69.393 Ataxia following cerebral infarction; J32.0 Chronic maxillary sinusitis; E78.5 Hyperlipidemia, unspecified; Z79.82 Long term (current) use of aspirin; Z79.02 Long term (current) use of antithrombotics/antiplatelets; Z79.899 Other long term (current) drug therapy; Z74.09 Other reduced mobility; Z91.19 Patient's noncompliance with other medical treatment and regimen